=== PATIENT | male | born 1975 | race African-American/Black ===

== ENCOUNTER 2016-08-15 02:57 | Inpatient (IN) ==
[2016-08-15] MEDS ORDERED: HYDROmorphone 2 MG/1 ML VIAL ONE (02:58)
[2016-08-15] MEDS ORDERED: LIDOCAINE 1% 20 ML VIAL ONE (02:58)
[2016-08-15] MEDS ORDERED: MIDAZOLAM 2 MG/2 ML VIAL ONE (02:59)
[2016-08-15] MEDS ORDERED: TIROFIBAN 5,000 MCG/100 ML PREMIX IV ONE (03:22)
[2016-08-15] MEDS ORDERED: TIROFIBAN 5,000 MCG/100 ML PREMIX IV SCH (03:29)
[2016-08-15] MEDS ORDERED: TICAGRELOR 90 MG TABLET ONE (03:44)
[2016-08-15] MEDS ORDERED: NITROGLYCERIN SL 0.4 MG TABLET SL PRN (03:45)
[2016-08-15] MEDS ORDERED: ACETAMINOPHEN 325 MG TABLET PO PRN (03:45)
[2016-08-15] MEDS ORDERED: CARVEDILOL 6.25 MG TABLET PO SCH (03:55)
[2016-08-15] MEDS ORDERED: SODIUM CHLORIDE 0.45% 1,000 ML IV SCH (04:00)
--- NOTE | 2016-08-15 04:13 | Cardiac Catheterization ---
Date of Procedure:: 08/15/16 Post-op diagnosis: same Procedure: Procedures performed: 1. Coronary angiography 2. Angioplasty and stenting of proximal LAD occlusion with drug-eluting stent ( 2.5 x 38 synergy) for acute ND/STEMI 3. Angioplasty admitted to LAD with 2.0 x 20 balloon 4. Right femoral arteriotomy closed with the Angio-Seal device. Brief clinical summary: Mr. Noel is a 41-year-old smoker followed Dr. Ramires status post CABG in 2013 who presented with 3 hours of severe chest pain and EKG in [place] suggesting acute anterior septal ND and was transferred here for further care. He reported resolution of his chest pain prior to transfer. Description of procedure: After obtaining informed consent the patient was transferred to the Rotary Furnace Tender where the right groin was prepped and draped in usual sterile fashion. Next short 6 Finnish sheath placed the right femoral artery using a modified Seldinger's technique after the patient received IV sedation local anesthetic. Next a diagnostic JR4 was advanced engaged right coronary artery undergoes performed. Was then pulled back and used to engage the vein graft and was then manipulated to the left subclavian ranging of the FLORES graft was performed. This was then removed. The patient out of the [facility] Furnace T[facility] on Lovenox and aspirin full dose. I gave Aggrastat bolus and infusion after angiogram was performed. Next and EBU 3.5 guiding cath was advanced against the left coronary artery provide good support. A pro-water wire was advanced but would not cross the proximal LAD occlusion initially. I advanced a 2.0 x 20 balloon with this I was able to have enough support to cross the occlusion and eventually advanced into the distal LAD with a "looped" hip. Next I performed multiple inflations in the proximal mid LAD with modest improvement in flow but still OZZIE I. I made additional higher pressure inflations in the proximal midportion, and lower pressure inflations distally to the apex. I eventually achieved near OZZIE-3 flow. The balloon was then removed and a 2.5 by 38 Synergy stent was advanced and placed at the ostium and deployed at just below nominal pressures. Stent appear to be somewhat undersized. Without moving the balloon I read dilated to 13 shai for approximately 2.62 mm. There was a very good intragraft result and OZZIE-3 flow was restored. The patient was transferred to the [facility] Furnace Tender in good condition. Was somewhat hypertensive so we will start nitroglycerin infusion. Hemostasis was obtained with a nasal device as the sheath was in the right common femoral artery to vessel suitable for closure. There is no residual bleeding. Coronary angiography: Left main coronary is normal development free disease. The left anterior descending artery has moderate disease at the ostium and is occluded proximally. The circumflex has moderate proximal disease and competitive flow can be seen into the OM 2 branch. There is a thin very diseased OM1 branch. The right coronary artery appears to be reasonably large of the ostium but is occluded very proximally. The mid RCA fills by bridging collaterals. Impression: 1. Right dominant system 2. Severe three-vessel coronary artery disease as described above including but not limited to: A. Proximal LAD occlusion with apparent diffuse disease/thrombus throughout the LAD (culprit vessel) B. Moderate to intermediate proximal circumflex disease extending into the OM 2 branch where competitive flow is noted C. Very proximal RCA occlusion with filling of the mid vessel by bridging collaterals 3. Grafts: A. FLORES to LAD graft is occluded at the origin B. SVG to OM is widely patent with large distal target and normal flow. 4. Status post angioplasty of proximal, mid, distal LAD with 2.0 x 20 balloon restoring OZZIE 2b flow 5. Status post stenting of ostial to mid LAD with 2.5 x 38 drug-eluting Synergy stent with excellent result (dilated to approximately 2.62 mm Recommendation discussion: I believe achieved an excellent result with stenting of Mr. Noel's very proximal LAD occlusion and restoring normal flow. He appear to have fairly diffuse disease/thrombus. He will continue on Aggrastat and be observed in the CCU closely. Will start nitroglycerin infusion to control his blood pressure. Echocardiogram was ordered to evaluate his ejection fraction. I will start low- dose Coreg as well. Later decision can be made whether to treat his right coronary artery occlusion medically or attempt intervention. Anesthesia: minimal conscious sedation Surgeon / Physician: Shiv Anderson Estimated blood loss: minimal, other Specimens: none sent Condition: stable Disposition: ICU/CCU - Medications / Follow-up
--- NOTE | 2016-08-15 04:16 | Cardiology History & Physical ---
Assessment and Plan (1) ST elevation (STEMI) myocardial infarction involving left anterior descending coronary artery Status: Acute Assessment and plan: 1. 41-year-old black male smoker followed by Dr. Ramires with aggressive CAD status post remote circumflex stenting, and status post CABG in 2013 (FLORES to LAD, vein to OM), who presents with 3 hours of severe chest pain and anteroseptal SD with resolution of his chest pain prior to transfer from [place] 2. The patient was transferred directly to the Dental Assistant Teacher where he was found to have proximal LAD occlusion and diffuse disease/thrombus was treated successfully with angioplasty throughout with 2 oh by 20 balloon and subsequent stenting of ostial LAD with 2.5 x 38 drug-eluting Synergy stent dilated 2.60 mm. 3. Transfer to CCU review watch closely and start her on nitroglycerin infusion 4. We will get high intensity statin and continue Brilinta aspirin and complete Aggrastat bottle 5. We will start low-dose beta-leslie therapy. Current Visit: Yes (2) HTN (hypertension) Status: Acute Current Visit: Yes (3) Smoker Status: Acute Current Visit: Yes History of Present Illness Chief complaint: cp History of present illness: Mr. Noel is a 41 year old male followed by Dr. Ramires with aggressive CAD and stenting of his circumflex several years ago and subsequent CABG in 2013. He was sent here acutely from [place] for ST elevation SD anteroseptally. His chest pain resolved in the emergency room there and although he received sedation. He reports to me he had 3 hours of chest pain substernally which were into both arms with shortness of breath and nausea. He denies any previous cardiac problems, but clearly he had significant CAD in the past. He reports that he is still smoking. Allergies Allergy/AdvReac Type Severity Reaction Status Date / Time Unable to Obtain Allergy Unverified 08/15/16 02:57 Cardiology Physical Exam - Constitutional General appearance: normal weight, no acute distress - ENT ENT exam: Present: normal exam - Neurological Exam Neurological exam: Present: alert, oriented X3 - Psychiatric Psychiatric exam: Present: normal affect
[2016-08-15] MEDS ORDERED: ATORVASTATIN 40 MG TABLET PO STA (04:18)
[2016-08-15 06:00] LABS: Basophils % 0.4 % (0.0-0.8); Eosinophils # 0.1 10*3/uL (0.0-0.87); Eosinophils % 0.8 % (0.00-10.9); Hematocrit 42.7 VOL% (42.0-52.0); Hemoglobin 14.2 GM/DL (14.0-18.0); Immature Granulocytes % 0.4 %; Immature Granulocytes Absolute 0.03 #; Lymphocytes # 2.7 10*3/uL (1.4-4.0); Lymphocytes % 34.1 % (21.2-54.2); Mean Corpuscular HGB Conc 33.3 GM/DL (32-36); Mean Corpuscular Hemoglobin 28 PG (27-34); Mean Corpuscular Volume 83.2 FL (87-102); Mean Platelet Volume 9.5 FL (9.6-12.0); Monocytes # 0.3 10*3/uL (0.11-0.8); Monocytes % 4.2 % (1.7-12.7); Neutrophils # 4.7 10*3/uL (1.4-7.4); Neutrophils % 60.1 % (38.7-73.9); Platelet Count 348 T/CUMM (130-400); Red Blood Count 5.13 MC/CUMM (3.8-5.5); Red Cell Distribution Width 13.9 % (9.3-17.3); White Blood Count 7.8 T/CUMM (4-12)
[2016-08-15] MEDS: NITROGLYCERIN DRIP 50 MG/250 ML BOTTLE IV SCH (06:06)
--- NOTE | 2016-08-15 06:51 | EKG Report ---
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
[2016-08-15 07:06] LABS: CKMB % 8.6 %
[2016-08-15 07:10] LABS: Troponin I Only > 200.000 NG/ML (0.00-0.045)
[2016-08-15 08:08] LABS: Basophils % 0.3 % (0.0-0.8); Eosinophils # 0.1 10*3/uL (0.0-0.87); Eosinophils % 0.6 % (0.00-10.9); Hematocrit 40.9 VOL% (42.0-52.0); Hemoglobin 14.1 GM/DL (14.0-18.0); Immature Granulocytes % 0.5 %; Immature Granulocytes Absolute 0.04 #; Lymphocytes # 2.1 10*3/uL (1.4-4.0); Lymphocytes % 23.5 % (21.2-54.2); Mean Corpuscular HGB Conc 34.5 GM/DL (32-36); Mean Corpuscular Hemoglobin 28 PG (27-34); Mean Platelet Volume 9.5 FL (9.6-12.0); Monocytes # 0.5 10*3/uL (0.11-0.8); Monocytes % 5.9 % (1.7-12.7); Neutrophils % 69.2 % (38.7-73.9); Platelet Count 337 T/CUMM (130-400); Red Blood Count 4.99 MC/CUMM (3.8-5.5); White Blood Count 8.7 T/CUMM (4-12)
--- NOTE | 2016-08-15 08:16 | Cardiology Progress Note ---
<Kary Bermeo E - Last Filed: 08/15/16 08:01> Assessment and Plan - Time spent with patient Time spent with patient: Greater than 30 minutes Time spent discussing smoking cessation with patient: 3 to 10 minutes (1) STEMI (ST elevation myocardial infarction) Status: Resolved Assessment and plan: SEE PLAN OF CARE LISTED BELOW Current Visit: Yes (2) Dyslipidemia Status: Chronic Assessment and plan: SEE PLAN OF CARE LISTED BELOW Current Visit: Yes (3) CAD (coronary artery disease) Status: Chronic Assessment and plan: SEE PLAN OF CARE LISTED BELOW Current Visit: Yes (4) Hx of CABG Status: Chronic Assessment and plan: SEE PLAN OF CARE LISTED BELOW Current Visit: Yes (5) HTN (hypertension) Status: Acute Current Visit: Yes (6) Smoker Status: Chronic Assessment and plan: SEE PLAN OF CARE LISTED BELOW Current Visit: Yes Cardiology - PN: Subj Interval history: 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 Noel, 41BM, previously followed by Dr. Jazmin Ramires. He has not been seen in cardiology clinic recently. Risk factors include: known coronary artery disease, hypertension, dyslipidemia, tobaccoism. Patient has aggressive CAD with stenting of the circumflex several years ago and subsequent CABG 2013. Patient was transferred early this morning from [place], [place] for STEMI anteroseptally. Patient underwent emergent cardiac catheterization, performed by Dr. Anderson, with the following noted: Impression: 1. Right dominant system 2. Severe three-vessel coronary artery disease as described above including but not limited to: A. Proximal LAD occlusion with apparent diffuse disease/thrombus throughout the LAD (culprit vessel) B. Moderate to intermediate proximal circumflex disease extending into the OM 2 branch where competitive flow is noted C. Very proximal RCA occlusion with filling of the mid vessel by bridging collaterals 3. Grafts: A. FLORES to LAD graft is occluded at the origin B. SVG to OM is widely patent with large distal target and normal flow. 4. Status post angioplasty of proximal, mid, distal LAD with 2.0 x 20 balloon restoring OZZIE 2b flow 5. Status post stenting of ostial to mid LAD with 2.5 x 38 drug-eluting Synergy stent with excellent result (dilated to approximately 2.62 mm Recommendation discussion: I believe achieved an excellent result with stenting of Mr. Noel's very proximal LAD occlusion and restoring normal flow. He appear to have fairly diffuse disease/thrombus. He will continue on Aggrastat and be observed in the CCU closely. Nitroglycerin was started for blood pressure control, Coreg initiated. Echocardiogram has been ordered. Later decision can be made whether to treat his right coronary artery occlusion medically or attempt intervention. Troponin greater than 200. Continue cycle cardiac biomarkers, additional labs pending this morning. ASSESSMENT/PLAN: 1. STEMI -status post revascularization. Currently taking Aspirin 81 mg daily , Brilinta, Atorvastatin. Beta-leslie has been increased this morning for better blood pressure control. Will incorporate ABEL inhibitor when able. Awaiting morning labs. 2. KNOWN CAD S/P CABG -continue current plan of care 3. HYPERTENSION -currently on IV nitroglycerin for blood pressure control. Will wean this off and incorporate higher dose of beta-leslie today. Eventually, if possible, will incorporate ice as well. 4. DYSLIPIDEMIA -lipid profile pending this morning. Continue with Atorvastatin 80 mg orally each evening. Exam (Progress Note) - Constitutional Vitals: Period Temp Pulse Resp BP Sys/Phillips Pulse Ox Last 24 Hr 97.2 F 75-103 18-22 124-151/81-97 94-99 Exam: General: [Appears well with no apparent distress.] [Pleasant and cooperative. ] [Appears comfortable.] HEENT: [PERRL, normocephalic, atraumatic. Mucous membranes moist. No jaundice noted. Conjunctiva moist and clear, sclerae anicteric] Neck: No JVD/HJR, no thyromegaly or lymphadenopathy noted. No carotid bruit appreciated Cardiac: [Regular rate and rhythm.] [No murmur rub or gallop.] Lungs: [Clear to auscultation without accessory muscle use to assist the respiratory pattern.] Not requiring oxygen Abdomen: Soft, bowel sounds normoactive. Nontender and nondistended. No abdominal bruit or thrill noted. No masses noted. Musculoskeletal: No fluid collection. Decreased range of motion is noted. Extremities: Right groin soft, free of hematoma or bruit. Dressing dry and intact. No clubbing, cyanosis noted. [ No edema noted.] Upper extremity pulses 2+. Lower extremity pulses 2+. Capillary refill less than 3 seconds. Skin: No unusual lesions or rashes. No skin breakdown appreciated. Neuro: Awake, alert and oriented 3. Moves all extremities well without hemiparesis or paralysis. No essential tremor is appreciated. Result/EKG - Labs CBC & BMP: 08/15/16 05:41 Lab Results: I have reviewed the past 24 hour labs Labs: Laboratory Results - last 24 hr 08/15/16 08/15/16 05:41 05:41 WBC 7.8 RBC 5.13 Hgb 14.2 Hct 42.7 MCV 83.2 L MCH 28 MCHC 33.3 RDW 13.9 Plt Count 348 MPV 9.5 L Neut % (Auto) 60.1 Lymph % (Auto) 34.1 Collin % (Auto) 4.2 Eos % (Auto) 0.8 Baso % (Auto) 0.4 Neut # (Auto) 4.7 Lymph # (Auto) 2.7 Collin # (Auto) 0.3 Eos # (Auto) 0.1 Baso # (Auto) 0.0 Immature Gran % 0.4 Nucleated RBC % 0.0 Immature Gran # 0.03 Nucleated RBCs # 0.00 Total Creatine Kinase 5746 H CK-MB (CK-2) 494.7 H CK and CKMB Interp 8.6 Troponin I > 200.000 H - Diagnostic Findings Procedure: Chest x-ray: report reviewed by me - EKG EKG results: interpreted by ok EKG shows: sinus rhythm Specialty Discharge - Follow Up or Referrals <Jazmin Ramires - Last Filed: 08/15/16 09:14> Cardiology - PN: Subj Interval history: I have personally interviewed and evaluated the patient, reviewed the chart and discussed medical decision-making with Practitioner Jean-Claude. I have read this note and agree with her documentation here in. The patient became very angry and upset, this seems to instigate his GA. He is frequently going in and out of ventricular bigeminy this morning, we will optimize his beta-leslie therapy. Exam (Progress Note) - Constitutional Vitals: Period Temp Pulse Resp BP Sys/Phillips Pulse Ox Last 24 Hr 97.2 F-98.6 F 75-103 13-22 100-163/65-103 94-100 Result/EKG - Labs CBC & BMP: 08/15/16 07:58 08/15/16 07:58 Labs: Laboratory Results - last 24 hr 08/15/16 08/15/16 08/15/16 05:41 05:41 07:58 WBC 7.8 RBC 5.13 Hgb 14.2 Hct 42.7 MCV 83.2 L MCH 28 MCHC 33.3 RDW 13.9 Plt Count 348 MPV 9.5 L Neut % (Auto) 60.1 Lymph % (Auto) 34.1 Collin % (Auto) 4.2 Eos % (Auto) 0.8 Baso % (Auto) 0.4 Neut # (Auto) 4.7 Lymph # (Auto) 2.7 Collin # (Auto) 0.3 Eos # (Auto) 0.1 Baso # (Auto) 0.0 Immature Gran % 0.4 Nucleated RBC % 0.0 Immature Gran # 0.03 Nucleated RBCs # 0.00 Sodium Potassium Chloride Carbon Dioxide Anion Gap BUN Creatinine GFR Calculation BUN/Creatinine Ratio Glucose Calculated Osmolality Calcium Magnesium Total Creatine Kinase 5746 H 6641 H CK-MB (CK-2) 494.7 H 525.7 H D CK and CKMB Interp 8.6 7.9 Troponin I > 200.000 H > 200.000 H Triglycerides Cholesterol LDL Cholesterol VLDL Cholesterol HDL Cholesterol Heart Disease Risk Ratio Free T4 TSH 3rd Generation 08/15/16 08/15/16 07:58 07:58 WBC 8.7 RBC 4.99 Hgb 14.1 Hct 40.9 L MCV 82.0 L MCH 28 MCHC 34.5 RDW 14.0 Plt Count 337 MPV 9.5 L Neut % (Auto) 69.2 Lymph % (Auto) 23.5 Collin % (Auto) 5.9 Eos % (Auto) 0.6 Baso % (Auto) 0.3 Neut # (Auto) 6.0 Lymph # (Auto) 2.1 Collin # (Auto) 0.5 Eos # (Auto) 0.1 Baso # (Auto) 0.0 Immature Gran % 0.5 Nucleated RBC % 0.0 Immature Gran # 0.04 Nucleated RBCs # 0.00 Sodium 138 Potassium 3.9 Chloride 107 Carbon Dioxide 23 Anion Gap 11.9 BUN 10 Creatinine 1.20 GFR Calculation 112 BUN/Creatinine Ratio 8.00 Glucose 95 Calculated Osmolality 273.7 Calcium 8.7 Magnesium 1.8 Total Creatine Kinase CK-MB (CK-2) CK and CKMB Interp Troponin I Triglycerides 102 Cholesterol 327 H LDL Cholesterol 263.0 VLDL Cholesterol 20.4 HDL Cholesterol 37 L Heart Disease Risk Ratio 8.84 Free T4 1.08 TSH 3rd Generation 0.986
[2016-08-15 08:42] LABS: Calcium 8.7 MG/DL (8.5-10.1); Free T4 (Free Thyroxine) 1.08 NG/DL (0.76-1.46); Magnesium 1.8 MG/DL (1.8-2.4); Osmolality,Calculated 273.7 MOS/KG (273-304); Potassium 3.9 MMOL/L (3.5-5.1); Risk Ratio 8.84; Thyroid Stimulating Hormone 0.986 uIU/ml (0.358-3.74); VLDL CHOLESTEROL 20.4 MG/DL
[2016-08-15 08:46] LABS: CKMB % 7.9 %
[2016-08-15] MEDS ORDERED: CARVEDILOL 3.125 MG TABLET PO SCH (09:00)
[2016-08-15 09:10] LABS: Troponin I Only > 200.000 NG/ML (0.00-0.045)
[2016-08-15] MEDS: TICAGRELOR 90 MG TABLET PO SCH ×2 (09:26→21:24)
[2016-08-15] MEDS: CARVEDILOL 6.25 MG TABLET PO SCH ×2 (09:27→21:23)
[2016-08-15] MEDS: ASPIRIN EC 81 MG TABLET PO SCH (09:27)
[2016-08-15] MEDS: FAMOTIDINE 20 MG TABLET PO SCH ×2 (09:27→21:24)
[2016-08-15 11:41] LABS: CKMB % 7.4 %
[2016-08-15 11:43] LABS: Troponin I Only > 200.000 NG/ML (0.00-0.045)
[2016-08-15 16:22] LABS: CKMB % 5.4 %
[2016-08-15] MEDS: ATORVASTATIN 80 MG TABLET PO SCH (21:23)
[2016-08-16 00:30] LABS: CKMB % 2.9 %
[2016-08-16 00:32] LABS: Troponin I Only 63.8 NG/ML (0.00-0.045)
[2016-08-16 05:00] LABS: Basophils % 0.4 % (0.0-0.8); Eosinophils # 0.1 10*3/uL (0.0-0.87); Eosinophils % 1.4 % (0.00-10.9); Hematocrit 38.1 VOL% (42.0-52.0); Hemoglobin 12.8 GM/DL (14.0-18.0); Immature Granulocytes % 0.4 %; Immature Granulocytes Absolute 0.03 #; Lymphocytes # 2.4 10*3/uL (1.4-4.0); Lymphocytes % 32.9 % (21.2-54.2); Mean Corpuscular HGB Conc 33.6 GM/DL (32-36); Mean Corpuscular Hemoglobin 28 PG (27-34); Mean Corpuscular Volume 82.3 FL (87-102); Mean Platelet Volume 9.9 FL (9.6-12.0); Monocytes # 0.5 10*3/uL (0.11-0.8); Monocytes % 6.8 % (1.7-12.7); Neutrophils # 4.3 10*3/uL (1.4-7.4); Neutrophils % 58.1 % (38.7-73.9); Platelet Count 325 T/CUMM (130-400); Red Blood Count 4.63 MC/CUMM (3.8-5.5); White Blood Count 7.4 T/CUMM (4-12)
[2016-08-16 05:30] LABS: Calcium 8.4 MG/DL (8.5-10.1); Magnesium 2.1 MG/DL (1.8-2.4); Osmolality,Calculated 282.3 MOS/KG (273-304)
[2016-08-16] MEDS: NITROGLYCERIN DRIP 50 MG/250 ML BOTTLE IV SCH (06:05)
--- NOTE | 2016-08-16 07:23 | EKG Report ---
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
[2016-08-16 07:48] LABS: CKMB % 2.4 %
--- NOTE | 2016-08-16 08:40 | Cardiology Progress Note ---
<Kary Bermeo E - Last Filed: 08/16/16 11:17> Assessment and Plan - Time spent with patient Time spent with patient: Greater than 30 minutes (1) STEMI (ST elevation myocardial infarction) Status: Resolved Assessment and plan: SEE PLAN OF CARE LISTED BELOW Current Visit: Yes (2) Dyslipidemia Status: Chronic Assessment and plan: SEE PLAN OF CARE LISTED BELOW Current Visit: Yes (3) CAD (coronary artery disease) Status: Chronic Assessment and plan: SEE PLAN OF CARE LISTED BELOW Current Visit: Yes (4) Hx of CABG Status: Chronic Assessment and plan: SEE PLAN OF CARE LISTED BELOW Current Visit: Yes (5) HTN (hypertension) Status: Acute Current Visit: Yes (6) Smoker Status: Chronic Assessment and plan: SEE PLAN OF CARE LISTED BELOW Current Visit: Yes Cardiology - PN: Subj Interval history: SUPERVISOR TYPE PHOTOGRAPHY: DR. RAMIRES Patient is being seen in the CCU. SUMMARY: Mr. Noel, 41BM, with known history of coronary artery disease (S/P CABG 2013), hypertension, dyslipidemia, tobaccoism, illicit drug abuse in the past. Patient was admitted August 15, 2016 with anteroseptal STEMI. He underwent emergent cardiac catheterization performed by Dr. Anderson. Patient required stenting of the ostial to mid LAD with UMM. (See cardiac catheterization report for additional information). AUGUST 16, 2016: Overnight, patient has done well. His troponin peaked at greater than 200 and is currently 52.0. He denies chest pain, heaviness or tightness. Labs are stable this morning. No arrhythmia noted. Urine drug screen was not collected. Patient is tolerating aspirin, Brilinta, beta fredrick and lipid- lowering agent. Blood pressure will not allow for introduction of an ABEL inhibitor. LDL 263, total cholesterol 327, HDL 37, Trigs 102. I will repeat for validity in the morning. Patient will be transferred to telemetry with possible discharge tomorrow. Cardiac rehab has been consulted. ASSESSMENT/PLAN: 1. STEMI -status post revascularization. Currently taking Aspirin 81 mg daily , Brilinta, Atorvastatin, Beta Fredrick. Will incorporate ABEL inhibitor when able. 2. KNOWN CAD S/P CABG - continue current plan of care 3. HYPERTENSION - adequately controlled. 4. DYSLIPIDEMIA - LDL 263. WIll recheck for validity in the morning. Continue lipid lowering agent. 5. TOBACCOSIM - greater than 5 minutes was spent today discussing the merits of tobacco cessation. Exam (Progress Note) - Constitutional Vitals: Period Temp Pulse Resp BP Sys/Phillips Pulse Ox Last 24 Hr 97.2 F-99.4 F 76-108 12-26 88-145/48-92 93-100 Exam: General: [Appears well with no apparent distress.] [Pleasant and cooperative. ] [Appears comfortable.] HEENT: [PERRL, normocephalic, atraumatic. Mucous membranes moist. No jaundice noted. Conjunctiva moist and clear, sclerae anicteric] Neck: No JVD/HJR, no thyromegaly or lymphadenopathy noted. No carotid bruit appreciated Cardiac: [Regular rate and rhythm.] [No murmur rub or gallop.] Lungs: [Clear to auscultation without accessory muscle use to assist the respiratory pattern.] Not requiring oxygen. Abdomen: Soft, bowel sounds normoactive. Nontender and nondistended. No abdominal bruit or thrill noted. No masses noted. Musculoskeletal: No fluid collection. Decreased range of motion is noted. Extremities: Right groin soft, free of hematoma or bruit. No clubbing, cyanosis noted. [ No edema noted.] Upper extremity pulses 2+. Lower extremity pulses 2+. Capillary refill less than 3 seconds. Skin: No unusual lesions or rashes. No skin breakdown appreciated. Neuro: Awake, alert and oriented 3. Moves all extremities well without hemiparesis or paralysis. No essential tremor is appreciated. Result/EKG - Labs CBC & BMP: 08/16/16 04:20 08/16/16 04:20 Lab Results: I have reviewed the past 24 hour labs Labs: Laboratory Results - last 24 hr 08/15/16 08/15/16 08/15/16 07:58 07:58 10:37 WBC RBC Hgb Hct MCV MCH MCHC RDW Plt Count MPV Neut % (Auto) Lymph % (Auto) [place] % (Auto) Eos % (Auto) Baso % (Auto) Neut # (Auto) Lymph # (Auto) [place] # (Auto) Eos # (Auto) Baso # (Auto) Immature Gran % Nucleated RBC % Immature Gran # Nucleated RBCs # Sodium 138 Potassium 3.9 Chloride 107 Carbon Dioxide 23 Anion Gap 11.9 BUN 10 Creatinine 1.20 GFR Calculation 112 BUN/Creatinine Ratio 8.00 Glucose 95 Calculated Osmolality 273.7 Calcium 8.7 Magnesium 1.8 Total Creatine Kinase 6641 H 5894 H CK-MB (CK-2) 525.7 H D 438.1 H D CK and CKMB Interp 7.9 7.4 Troponin I > 200.000 H > 200.000 H Triglycerides 102 Cholesterol 327 H LDL Cholesterol 263.0 VLDL Cholesterol 20.4 HDL Cholesterol 37 L Heart Disease Risk Ratio 8.84 Free T4 1.08 TSH 3rd Generation 0.986 08/15/16 08/15/16 08/16/16 15:27 23:39 04:20 WBC 7.4 RBC 4.63 Hgb 12.8 L Hct 38.1 L MCV 82.3 L MCH 28 MCHC 33.6 RDW 14.0 Plt Count 325 MPV 9.9 Neut % (Auto) 58.1 Lymph % (Auto) 32.9 [place] % (Auto) 6.8 Eos % (Auto) 1.4 Baso % (Auto) 0.4 Neut # (Auto) 4.3 Lymph # (Auto) 2.4 [place] # (Auto) 0.5 Eos # (Auto) 0.1 Baso # (Auto) 0.0 Immature Gran % 0.4 Nucleated RBC % 0.0 Immature Gran # 0.03 Nucleated RBCs # 0.00 Sodium Potassium Chloride Carbon Dioxide Anion Gap BUN Creatinine GFR Calculation BUN/Creatinine Ratio Glucose Calculated Osmolality Calcium Magnesium Total Creatine Kinase 4454 H D 2741 H D CK-MB (CK-2) 240.5 H D 78.2 H D CK and CKMB Interp 5.4 2.9 Troponin I 118.000 H D 63.800 H D Triglycerides Cholesterol LDL Cholesterol VLDL Cholesterol HDL Cholesterol Heart Disease Risk Ratio Free T4 TSH 3rd Generation 08/16/16 08/16/16 04:20 04:20 WBC RBC Hgb Hct MCV MCH MCHC RDW Plt Count MPV Neut % (Auto) Lymph % (Auto) [place] % (Auto) Eos % (Auto) Baso % (Auto) Neut # (Auto) Lymph # (Auto) [place] # (Auto) Eos # (Auto) Baso # (Auto) Immature Gran % Nucleated RBC % Immature Gran # Nucleated RBCs # Sodium 141 Potassium 4.0 Chloride 107 Carbon Dioxide 25 Anion Gap 13.0 BUN 11 Creatinine 1.30 GFR Calculation 101 BUN/Creatinine Ratio 8.00 Glucose 150 H Calculated Osmolality 282.3 Calcium 8.4 L Magnesium 2.1 Total Creatine Kinase 2204 H CK-MB (CK-2) 52.9 H D CK and CKMB Interp 2.4 Troponin I 52.000 H Triglycerides Cholesterol LDL Cholesterol VLDL Cholesterol HDL Cholesterol Heart Disease Risk Ratio Free T4 TSH 3rd Generation - Diagnostic Findings Procedure: Ultrasound: pending (echo pending) - EKG EKG results: interpreted by me EKG shows: sinus rhythm Specialty Discharge - Follow Up or Referrals <Jazmin Ramires - Last Filed: 08/16/16 21:36> Cardiology - PN: Subj Interval history: I have personally interviewed and evaluated the patient, reviewed the chart and discussed medical decision-making with Practitioner Jean-Claude. I have read this note and agree with her documentation here in. Exam (Progress Note) - Constitutional Vitals: Period Temp Pulse Resp BP Sys/Phillips Pulse Ox Last 24 Hr 97.2 F-98.8 F 74-101 12-25 88-138/50-86 93-100 Result/EKG - Labs CBC & BMP: 08/16/16 04:20 08/16/16 04:20 Labs: Laboratory Results - last 24 hr 08/15/16 08/16/16 08/16/16 23:39 04:20 04:20 WBC 7.4 RBC 4.63 Hgb 12.8 L Hct 38.1 L MCV 82.3 L MCH 28 MCHC 33.6 RDW 14.0 Plt Count 325 MPV 9.9 Neut % (Auto) 58.1 Lymph % (Auto) 32.9 [place] % (Auto) 6.8 Eos % (Auto) 1.4 Baso % (Auto) 0.4 Neut # (Auto) 4.3 Lymph # (Auto) 2.4 [place] # (Auto) 0.5 Eos # (Auto) 0.1 Baso # (Auto) 0.0 Immature Gran % 0.4 Nucleated RBC % 0.0 Immature Gran # 0.03 Nucleated RBCs # 0.00 Sodium 141 Potassium 4.0 Chloride 107 Carbon Dioxide 25 Anion Gap 13.0 BUN 11 Creatinine 1.30 GFR Calculation 101 BUN/Creatinine Ratio 8.00 Glucose 150 H Calculated Osmolality 282.3 Calcium 8.4 L Magnesium 2.1 Total Creatine Kinase 2741 H D CK-MB (CK-2) 78.2 H D CK and CKMB Interp 2.9 Troponin I 63.800 H D 08/16/16 04:20 WBC RBC Hgb Hct MCV MCH MCHC RDW Plt Count MPV Neut % (Auto) Lymph % (Auto) [place] % (Auto) Eos % (Auto) Baso % (Auto) Neut # (Auto) Lymph # (Auto) [place] # (Auto) Eos # (Auto) Baso # (Auto) Immature Gran % Nucleated RBC % Immature Gran # Nucleated RBCs # Sodium Potassium Chloride Carbon Dioxide Anion Gap BUN Creatinine GFR Calculation BUN/Creatinine Ratio Glucose Calculated Osmolality Calcium Magnesium Total Creatine Kinase 2204 H CK-MB (CK-2) 52.9 H D CK and CKMB Interp 2.4 Troponin I 52.000 H
[2016-08-16] MEDS: FAMOTIDINE 20 MG TABLET PO SCH ×2 (09:03→21:48)
[2016-08-16] MEDS: TICAGRELOR 90 MG TABLET PO SCH ×2 (09:04→21:48)
[2016-08-16] MEDS: CARVEDILOL 6.25 MG TABLET PO SCH ×2 (09:04→21:49)
[2016-08-16] MEDS: ASPIRIN EC 81 MG TABLET PO SCH (09:04)
--- NOTE | 2016-08-16 19:34 | ECHO Report ---
Otto Noel Exam Date: 08/15/2016 09:41 Referring Physician: Technologist: Bonnie Josue Age: 41 Ht (in): 72 Wt (lb): 234 Gender: M Exam Location: [facility] Echo Indications: Chest pain, unspecified, Essential (primary) hypertension, Shortness of breath, ST elevation (STEMI) myocardial infarction of unspecified site, CAD with prev CABG BP: 124 / 89 HR: 108 Rhythm: Sinus Technical Quality: Fair IMPRESSIONS Moderately to severely reduced LV systolic function with regional wall motion as described below, ejection fraction 35%. Grade 1/4 diastolic dysfunction. Moderate left atrial enlargement. Moderate concentric left ventricular hypertrophy. Mildly dilated right ventricle. Mild mitral, aortic, tricuspid and pulmonic regurgitation. Mild aortic sclerosis without significant stenosis. MEASUREMENTS (Male / Female) Normal Values 2D ECHO LV Diastolic Diameter PLAX 5.0 cm 4.2 - 5.9 / 3.9 - 5.3 cm LV Systolic Diameter PLAX 3.9 cm LV Fractional Shortening PLAX 21.4 % IVS Diastolic Thickness 1.4 cm 0.6 - 1.0 / 0.6 - 0.9 cm LVPW Diastolic Thickness 1.7 cm 0.6 - 1.0 / 0.6 - 0.9 cm RV Internal Dim ED PLAX 3.2 cm Aortic Root Diameter 2.4 cm LA Systolic Diameter LX 4.2 cm 3.0 - 4.0 / 2.7 - 3.8 cm DOPPLER TR Peak Velocity 258.0 cm/s TR Peak Gradient 26.6 mmHg FINDINGS Left Ventricle Normal left ventricular cavity size. Moderate left ventricular hypertrophy. Left ventricular ejection fraction is estimated at 35%. The mid to distal anterior wall, apex, and anterior septum are akinetic. The basal to mid inferior wall are severely hypokinetic, the distal inferior wall is akinetic. There is grade 1/4 diastolic dysfunction. Right Ventricle Mildly dilated. Right Atrium The right atrium is mildly enlarged. Left Atrium The left atrium is mildly enlarged. Mitral Valve Mildly thickened mitral valve with mild mitral regurgitation. Aortic Valve Aortic valve sclerosis without stenosis. Mild aortic valve regurgitation. Tricuspid Valve Morphologically normal tricuspid valve. Mild tricuspid valve regurgitation. Tricuspid regurgitation velocities suggest a PAP of 37 mmHg. Pulmonic Valve Morphologically normal pulmonic valve. [id number] pulmonary valve regurgitation. Pericardium Normal pericardium without effusion. Aorta Normal ascending aorta dimension. Jazmin Ramires MD (Electronically Signed) Final Date: 16 Aug 2016 19:32
[2016-08-16] MEDS: ATORVASTATIN 80 MG TABLET PO SCH (21:48)
[2016-08-17 06:47] LABS: Basophils % 0.2 % (0.0-0.8); Eosinophils # 0.1 10*3/uL (0.0-0.87); Eosinophils % 1.9 % (0.00-10.9); Hematocrit 38.3 VOL% (42.0-52.0); Hemoglobin 13.1 GM/DL (14.0-18.0); Immature Granulocytes % 0.6 %; Immature Granulocytes Absolute 0.04 #; Lymphocytes # 1.8 10*3/uL (1.4-4.0); Lymphocytes % 29.1 % (21.2-54.2); Mean Corpuscular HGB Conc 34.2 GM/DL (32-36); Mean Corpuscular Hemoglobin 28 PG (27-34); Mean Corpuscular Volume 82.7 FL (87-102); Monocytes # 0.4 10*3/uL (0.11-0.8); Monocytes % 6.6 % (1.7-12.7); Neutrophils # 3.8 10*3/uL (1.4-7.4); Neutrophils % 61.6 % (38.7-73.9); Platelet Count 312 T/CUMM (130-400); Red Blood Count 4.63 MC/CUMM (3.8-5.5); White Blood Count 6.2 T/CUMM (4-12)
[2016-08-17 07:47] LABS: Calcium 8.5 MG/DL (8.5-10.1); Osmolality,Calculated 280.4 MOS/KG (273-304)
[2016-08-17] MEDS: FAMOTIDINE 20 MG TABLET PO SCH (08:47)
[2016-08-17] MEDS: TICAGRELOR 90 MG TABLET PO SCH (08:47)
[2016-08-17] MEDS: CARVEDILOL 6.25 MG TABLET PO SCH (08:47)
[2016-08-17] MEDS: ASPIRIN EC 81 MG TABLET PO SCH (08:47)
--- NOTE | 2016-08-17 15:30 | Discharge Summary ---
Michael Morton Vanessa, RN, am scribing for, and in the presence of, Kary Bermeo NP 15:30. Hospital Course - Hospital Course Hospital Course: PHARMACY CUSTOMER CARE SPECIALIST: DR. RAMIRES Mr. Noel is a 41-year-old black male with known history of coronary artery disease with previous coronary artery stenting and is status post coronary artery bypass grafting in 2013. He also has a past medical history of hypertension, dyslipidemia, tobaccoism, illicit drug abuse in the past. Patient was transferred from [facility] to [facility] on the morning of August 15, 2016 presenting with 3 hours of severe substernal chest pain with radiation into both arms, dyspnea, nausea. He was found to be having an acute anteroseptal ST elevation TN. Patient was taken directly to the cardiac catheterization lab for emergent cardiac catheterization, and he was found to have a proximal LAD occlusion involving thrombus. Please see cardiac catheterization impression/findings with recommendation below: Impression: 1. Right dominant system 2. Severe three-vessel coronary artery disease as described above including but not limited to: A. Proximal LAD occlusion with apparent diffuse disease/thrombus throughout the LAD (culprit vessel) B. Moderate to intermediate proximal circumflex disease extending into the OM 2 branch where competitive flow is noted C. Very proximal RCA occlusion with filling of the mid vessel by bridging collaterals 3. Grafts: A. FLORES to LAD graft is occluded at the origin B. SVG to OM is widely patent with large distal target and normal flow. 4. Status post angioplasty of proximal, mid, distal LAD with 2.0 x 20 balloon restoring OZZIE 2b flow 5. Status post stenting of ostial to mid LAD with 2.5 x 38 drug-eluting Synergy stent with excellent result (dilated to approximately 2.62 mm) Recommendation discussion: I believe achieved an excellent result with stenting of Mr. Noel's very proximal LAD occlusion and restoring normal flow. He appear to have fairly diffuse disease/thrombus. He will continue on Aggrastat and be observed in the CCU closely. Nitroglycerin was started for blood pressure control, Coreg initiated. Echocardiogram has been ordered. Later decision can be made whether to treat his right coronary artery occlusion medically or attempt intervention. Troponin greater than 200. Continue cycle cardiac biomarkers, additional labs pending this morning. Echocardiogram after cardiac catheterization revealed moderate LVH and moderately to severely reduced LV systolic function and ejection fraction of 35% . Mid to distal anterior wall, apex, and anterior septum were akinetic, and basal to mid inferior wall are severely hypokinetic with the distal inferior wall being akinetic. There was grade 1/4 diastolic dysfunction and no significant valvular disease. Patient was monitored closely in the CCU, medication regimen adjusted appropriately. Patient had an uncomplicated course while in the CCU, and he was reassessed on August 16. Troponin levels peaked at greater than 200 and most currently 52.0 on August 16. Post revascularization, patient taking aspirin 81 mg daily, Brilinta 90 mg twice daily, atorvastatin, and beta-leslie. Blood pressure has not allowed for introduction of an ABEL inhibitor. Cardiac rehab was also consulted during admission. Patient was transferred to telemetry on the afternoon of August 16, and he has been hemodynamically stable since transfer and without complaint. He has remained in a sinus rhythm without ectopy or dysrhythmia. Blood pressure is stable and is 105/60. The importance and merits of smoking cessation have been discussed with the patient, and he is considering quitting smoking at this time. Upon exam, he is experiencing no chest pain shortness of breath, nausea or vomiting, or other anginal complaint. At this time, it is felt the patient has reached maximum hospital benefit and he is stable for discharge home. Post cath instructions have been discussed with patient, and he and significant other at bedside verbalized understanding. He will be discharged home on current medication regimen. He will be given prescriptions for medicines as taking now. He has been instructed to take his Brilinta without fail, and he has verbalized understanding of this. He will be given a card for 30 day free prescription for Brilinta. Discussed this with patient and his significant other at bedside, and they both verbalized understanding. Significant other does request a work excuse for patient's hospital admission as she works for the post [employer], and we will zoraida this. - Time spent with patient Time with patient DS: Greater than 30 minutes Time spent discussing smoking cessation with patient: more than 10 minutes Diagnosis - Discharge Diagnosis (1) ST elevation (STEMI) myocardial infarction involving left anterior descending coronary artery Status: Resolved (2) HTN (hypertension) Status: Chronic (3) CAD (coronary artery disease) Status: Chronic (4) Dyslipidemia Status: Chronic (5) Hx of CABG Status: Chronic (6) Smoker Status: Chronic Specialty Discharge - Follow Up or Referrals Follow up with: Jazmin Ramirse MD [Physician] - 1 Week (One-week follow-up appointment with Dr. Ramires at [facility] clinic with BMP, magnesium level, CBC, and EKG.) Discharge Plan - Discharge Data Disposition: Disch To Home/Self Care Condition at Discharge: Stable Discharge Diet: heart healthy, low fat, low cholesterol, low salt diet Activity: resume usual activities as tolerated Hygiene: may shower, keep area(s) dry (Right groin cath site; no vigorous scrubbing of area), other (No tub bath for 1 week) Weight Bearing at Discharge: full weight bearing Driving: not until seen by doctor Contact your physician if you experience:: fever over 101, Difficulty voiding, Redness or swelling, Nausea/Vomiting, Shortness of breath, Bleeding, pain uncontrolled by pain medications Wound / Dressing Care Instructions: Routine post cath instructions - Discharge Medications New Atorvastatin [Lipitor] 80 mg PO BEDTIME #30 tablet Ticagrelor [Brilinta] 90 mg PO BID #60 tablet Aspirin EC Tab 81 mg PO DAILY #30 tablet Carvedilol [Coreg] 6.25 mg PO BID #60 tablet - Follow Up or Referral Follow Up: Jazmin Ramires MD [Physician] - 1 Week (One-week follow-up appointment with Dr. Ramires at [facility] clinic with BMP, magnesium level, CBC, and EKG.) - Forms/Instructions Instructions: Myocardial Infarction (GEN), Left Heart Catheterization (DC), How to Stop Smoking (GEN), Heart Healthy Diet (GEN), Coronary Intravascular Stent Placement (DC), Cigarette Smoking and Your Health, Corporate Travel Coordinator (GEN) Exam - Constitutional Vitals: Period Temp Pulse Resp BP Sys/Phillips Pulse Ox Last 24 Hr 96.6 F-98.8 F 75-84 18-20 94-126/54-74 97-100 Exam: General: [Appears well with no apparent distress.] [Pleasant and cooperative. ] [Appears comfortable.] HEENT: [PERRL, normocephalic, atraumatic. Mucous membranes moist. No jaundice noted. Conjunctiva moist and clear, sclerae anicteric] Neck: No JVD/HJR, no thyromegaly or lymphadenopathy noted. No carotid bruit appreciated Cardiac: [Regular rate and rhythm.] [No murmur rub or gallop.] Lungs: [Clear to auscultation without accessory muscle use to assist the respiratory pattern.] Not requiring oxygen. Abdomen: Soft, bowel sounds normoactive. Nontender and nondistended. No abdominal bruit or thrill noted. No masses noted. Musculoskeletal: No fluid collection. Decreased range of motion is noted. Extremities: Right groin soft, free of hematoma or bruit. No clubbing, cyanosis noted. [ No edema noted.] Upper extremity pulses 2+. Lower extremity pulses 2+. Capillary refill less than 3 seconds. Skin: No unusual lesions or rashes. No skin breakdown appreciated. Neuro: Awake, alert and oriented 3. Moves all extremities well without hemiparesis or paralysis. No essential tremor is appreciated. Discharge Results Procedures and tests throughout hospitalization: Pending Orders 08/18/16 04:00 BMP w/ Mg [Basic Metabolic Panel w/Mg] IN AM CBC [Comp Blood Count Auto Diff] IN AM Labs on day of discharge: Labs from last 24 hours 08/17/16 08/17/16 06:59 04:00 WBC 6.2 RBC 4.63 Hgb 13.1 L Hct 38.3 L MCV 82.7 L MCH 28 MCHC 34.2 RDW 14.0 Plt Count 312 MPV 10.0 Neut % (Auto) 61.6 Lymph % (Auto) 29.1 [place] % (Auto) 6.6 Eos % (Auto) 1.9 Baso % (Auto) 0.2 Neut # (Auto) 3.8 Lymph # (Auto) 1.8 [place] # (Auto) 0.4 Eos # (Auto) 0.1 Baso # (Auto) 0.0 Immature Gran % 0.6 Nucleated RBC % 0.0 Immature Gran # 0.04 Nucleated RBCs # 0.00 Sodium 140 Potassium 4.0 Chloride 106 Carbon Dioxide 23 Anion Gap 15.0 BUN 13 Creatinine 1.20 GFR Calculation 112 BUN/Creatinine Ratio 10.00 Glucose 127 H Calculated Osmolality 280.4 Calcium 8.5 Magnesium 2.0 DS: Provider Consults: 08/15/16 03:45 Consult to Cardiac Rehabilitation [CONS] Routine Reason for Cardiac Rehabilitation: Appt Out Pt Cardiac Rehab Consult Comment: STEMI; Stent Expected date of discharge: 08/17/16 Jean-Claude Morton Bonnie E, NP, personally performed the services described in this documentation, ascribed by Luanne Rodriguez RN in my presence, and it is both accurate and complete [id number] .
[2016-08-17 17:11] VITALS: BP 107/66
== END 2016-08-17 18:00 | disposition home or self-care (01) | DRG 247 ==
LOC: N.ED 02:57 → N.CC 03:11 → N.EDINP 03:50 → N.CC 05:02 → N.TELES 08-16 11:56
PROVIDERS: ADMIT Internal Medicine Cardiovascular Disease; ATTEND Internal Medicine Cardiovascular Disease